=== PATIENT | male | born 1990 | race Caucasian/White ===

== ENCOUNTER 2024-03-03 07:46 | Observation (INO) ==
[2024-03-03] MEDS: Lactated Ringers 1000 ml BAG 1,000 ML IV ONE ×2 (08:14→08:58)
[2024-03-03] MEDS: Morphine 2 MG/ML SYRINGE IV ONE ×3 (08:16→10:04)
[2024-03-03] MEDS: Ondansetron 4 mg VIAL 2 MG/ML 2 ml VIAL IV ONE (08:17)
[2024-03-03 08:23] LABS: ABS Basophils 0.1 10^3/uL (0.0-0.1); ABS Eosinophils 0.1 10^3/uL (0.0-0.5); ABS Lymphocytes 2.3 10^3/uL (1.0-4.8); ABS Monocytes 1.1 10^3/uL (0.0-1.1); ABS Nucleated RBC 0.01 10^3/ul; Eosinophil % 0.6 %; Hematocrit 39.7 % (38-53); Hemoglobin 13.3 g/dL (13.2-16.3); Mean Corpuscular Hemoglobin 30.3 pg (27-33); Mean Corpuscular Hgb Conc 33.5 g/dL (31-36); Mean Corpuscular Volume 90.4 fL (80-97); Mean Platelet Volume 6.9 fL (7.5-11.2); Platelet Count 226 10^3/uL (150-450); Red Blood Count 4.39 10^6/uL (4.06-5.63); Red Cell Distribution Width 13.9 % (12-17); White Blood Count 13.4 10^3/uL (3.6-10.2)
[2024-03-03 09:23] LABS: Albumin 2.5 g/dL (3.2-5.2); Albumin/Globulin Ratio 1.9 (1-3); C Reactive Protein 7.44 mg/L (<8.01); Calcium 5.1 mg/dL (8.6-10.3); Creatinine, Serum 0.69 mg/dL (0.67-1.17); Globulin 1.3 g/dL (2-4); Potassium 2.7 mmol/L (3.5-5.0); Total Bilirubin 0.2 mg/dL (0.2-1.0); Total Protein 3.8 g/dL (6.4-8.9); eGFR CKD-EPI 124.5 (>60)
[2024-03-03 09:32] LABS: Magnesium 1.3 mg/dL (1.9-2.7)
[2024-03-03] MEDS: KCL 20 MEQ/100 ML IVPREMIX 20 MEQ/100 ML BAG IV SCH (09:53)
[2024-03-03] MEDS: Magnesium Sulfate 2 gm BAG 2 GM/50 ML BAG IVPB ONE (10:05)
[2024-03-03] MEDS: Iohexol 300 (CONTRAST) 10 ML SDV IV ONE (10:40)
[2024-03-03 12:27] LABS: Urine Appearance Clear; Urine Bacteria Absent /HPF (Absent); Urine Bilirubin Negative (Negative); Urine Blood 3+ (Negative); Urine Color Yellow; Urine Glucose Negative (Negative); Urine Ketones Negative (Negative); Urine Nitrite Negative (Negative); Urine Protein 1+ (>=30 mg/dL) (Negative); Urine Red Blood Cell 3+(>10/hpf) /HPF (0-Trace); Urine Specific Gravity >1.050 (1.002-1.030); Urine Squamous Epithelial Cell Present /HPF (Absent); Urine Urobilinogen Negative (Negative); Urine White Blood Cell 1+(6-10/hpf) /HPF (0-Trace)
[2024-03-03 15:43] LABS: Albumin 4.1 g/dL (3.2-5.2); Albumin/Globulin Ratio 1.9 (1-3); Calcium 8.6 mg/dL (8.6-10.3); Creatinine, Serum 1.31 mg/dL (0.67-1.17); Globulin 2.2 g/dL (2-4); Magnesium 2.3 mg/dL (1.9-2.7); Potassium 5.2 mmol/L (3.5-5.0); Total Bilirubin 0.5 mg/dL (0.2-1.0); Total Protein 6.3 g/dL (6.4-8.9); eGFR CKD-EPI 73.3 (>60)
[2024-03-03 17:11] LABS: Albumin 4.1 g/dL (3.2-5.2); Calcium 8.4 mg/dL (8.6-10.3); Creatinine, Serum 1.33 mg/dL (0.67-1.17); Globulin 2.1 g/dL (2-4); Potassium 4.5 mmol/L (3.5-5.0); Total Bilirubin 0.6 mg/dL (0.2-1.0); Total Protein 6.2 g/dL (6.4-8.9); eGFR CKD-EPI 71.9 (>60)
[2024-03-03] MEDS: NS 0.9% 1000 ml BAG 1,000 ML IV SCH (18:18)
[2024-03-03] MEDS: cefTRIAXone 1 gm/50 mL D5W 1 GM/50 ML BAG IV ONE (18:19)
[2024-03-03] MEDS: HYDROmorphone 1 MG/1 ML SYRINGE IV SLOW PU ONE (21:06)
[2024-03-03] MEDS ORDERED: Acetaminophen IV 1 GM/100ML 1,000 MG/100 ML BAG IV PRN (21:21)
[2024-03-03] MEDS ORDERED: HYDROmorphone 0.5 MG/0.5 ML SYRINGE IV SLOW PU PRN (21:21)
[2024-03-03 21:32] VITALS: BP 149/79
[2024-03-04] MEDS ORDERED: cefTRIAXone 1 gm/50 mL D5W 1 GM/50 ML BAG IV SCH (18:00)
== END 2024-03-04 07:03 | disposition left against medical advice (07) ==
LOC: ED 07:46 → EDHOLD 07:46 → MEDTELE 20:54
PROVIDERS: ADMIT Internal Medicine; ATTEND Internal Medicine

== ENCOUNTER 2024-04-29 20:27 | Observation (INO) ==
[2024-04-29 21:26] LABS: ABS Basophils 0.1 10^3/uL (0.0-0.1); ABS Lymphocytes 1.8 10^3/uL (1.0-4.8); ABS Monocytes 1.4 10^3/uL (0.0-1.1); ABS Neutrophils 14.3 10^3/uL (1.5-7.6); ABS Nucleated RBC 0.03 10^3/ul; Eosinophil % 0.2 %; Hematocrit 42.3 % (38-53); Hemoglobin 14.3 g/dL (13.2-16.3); Lymphocyte % 10.4 %; Mean Corpuscular Hemoglobin 30.4 pg (27-33); Mean Corpuscular Hgb Conc 33.8 g/dL (31-36); Mean Corpuscular Volume 89.7 fL (80-97); Mean Platelet Volume 7.4 fL (7.5-11.2); Nucleated Red Blood Cells % 0.1 %/100WBC (0.0-0.8); Platelet Count 316 10^3/uL (150-450); Red Blood Count 4.72 10^6/uL (4.06-5.63); Red Cell Distribution Width 14.8 % (12-17); White Blood Count 17.6 10^3/uL (3.6-10.2)
[2024-04-29 22:00] LABS: ALT 24 U/L (7-52); AST 31 U/L (13-39); Albumin 4.6 g/dL (3.2-5.2); Albumin/Globulin Ratio 1.6 (1-3); Alcohol, S < 13 mg/dL (<13); Alkaline Phosphatase 79 U/L (35-149); Anion Gap 10 mmol/L (2-16); Blood Urea Nitrogen 22 mg/dL (6-24); CO2 Carbon Dioxide 28 mmol/L (22-32); Calcium 9.7 mg/dL (8.6-10.3); Chloride 112 mmol/L (101-111); Creatinine, Serum 2.02 mg/dL (0.67-1.17); Globulin 2.9 g/dL (2-4); Glucose 76 mg/dL (70-100); Potassium 4.2 mmol/L (3.5-5.0); Sodium 150 mmol/L (135-145); Total Bilirubin 0.7 mg/dL (0.2-1.0); Total Protein 7.5 g/dL (6.4-8.9); eGFR CKD-EPI 43.6 (>60)
[2024-04-30] MEDS: Lactated Ringers 1000 ml BAG 1,000 ML IV ONE (01:16)
[2024-04-30 02:19] LABS: Creatine Kinase 572 U/L (10-223)
[2024-04-30] MEDS ORDERED: Lorazepam PYXIS KEY PRN (02:35)
[2024-04-30] MEDS: LORazepam 2 MG/ML 1 mL Syringe IV ONE (04:14)
[2024-04-30] MEDS: Lactated Ringers 1000 ml BAG 1,000 ML IV SCH ×2 (04:14→07:52)
[2024-04-30 05:07] VITALS: BP 138/80
[2024-04-30] MEDS ORDERED: LORazepam 2 MG/ML 1 mL Syringe IM PRN (06:22)
[2024-04-30] MEDS: Heparin 5000 UNITS/ML 1 mL VIAL SUBCUT SCH (06:22)
[2024-04-30 07:41] LABS: ABS Basophils 0.1 10^3/uL (0.0-0.1); ABS Eosinophils 0.2 10^3/uL (0.0-0.5); ABS Lymphocytes 3.3 10^3/uL (1.0-4.8); ABS Monocytes 1.3 10^3/uL (0.0-1.1); ABS Neutrophils 8.6 10^3/uL (1.5-7.6); ABS Nucleated RBC 0.01 10^3/ul; Eosinophil % 1.7 %; Hematocrit 37.8 % (38-53); Hemoglobin 12.7 g/dL (13.2-16.3); Lymphocyte % 24.2 %; Mean Corpuscular Hemoglobin 30.4 pg (27-33); Mean Corpuscular Hgb Conc 33.7 g/dL (31-36); Mean Corpuscular Volume 90.3 fL (80-97); Mean Platelet Volume 7.3 fL (7.5-11.2); Nucleated Red Blood Cells % 0.1 %/100WBC (0.0-0.8); Platelet Count 253 10^3/uL (150-450); Red Blood Count 4.19 10^6/uL (4.06-5.63); Red Cell Distribution Width 14.6 % (12-17); White Blood Count 13.4 10^3/uL (3.6-10.2)
[2024-04-30 08:27] LABS: Albumin 3.5 g/dL (3.2-5.2); Albumin/Globulin Ratio 1.5 (1-3); Calcium 8.4 mg/dL (8.6-10.3); Creatinine, Serum 1.32 mg/dL (0.67-1.17); Globulin 2.4 g/dL (2-4); Magnesium 2.2 mg/dL (1.9-2.7); Phosphorus 3.5 mg/dL (2.5-5.0); Potassium 4.3 mmol/L (3.5-5.0); Total Bilirubin 0.8 mg/dL (0.2-1.0); Total Protein 5.9 g/dL (6.4-8.9); eGFR CKD-EPI 72.6 (>60)
== END 2024-04-30 09:02 | disposition home or self-care (01) ==
LOC: EDHOLD 20:27 → ED 20:27 → SUATTDRO 04-30 01:51 → EDHOLD 04-30 09:01
PROVIDERS: ADMIT Internal Medicine; ATTEND Student in an Organized Health Care Education/Training Program

== ENCOUNTER 2024-05-04 10:39 | Observation (INO) ==
[2024-05-04] MEDS: Morphine 4 MG/ML VIAL (1 ml) IV ONE (12:18)
[2024-05-04] MEDS: Lactated Ringers 1000 ml BAG 1,000 ML IV ONE (12:18)
[2024-05-04] MEDS: Piperacillin/Tazobac 3.375 BAG 3.375 GM/100 ML BAG IV ONE (12:18)
[2024-05-04 12:31] LABS: ABS Basophils 0.1 10^3/uL (0.0-0.1); ABS Eosinophils 0.3 10^3/uL (0.0-0.5); ABS Lymphocytes 2.4 10^3/uL (1.0-4.8); ABS Monocytes 0.9 10^3/uL (0.0-1.1); ABS Neutrophils 6.5 10^3/uL (1.5-7.6); ABS Nucleated RBC 0.01 10^3/ul; Eosinophil % 2.6 %; Hematocrit 38.1 % (38-53); Hemoglobin 12.9 g/dL (13.2-16.3); Lymphocyte % 23.8 %; Mean Corpuscular Hemoglobin 30.4 pg (27-33); Mean Corpuscular Hgb Conc 33.8 g/dL (31-36); Mean Corpuscular Volume 89.9 fL (80-97); Mean Platelet Volume 7.5 fL (7.5-11.2); Nucleated Red Blood Cells % 0.1 %/100WBC (0.0-0.8); Platelet Count 266 10^3/uL (150-450); Red Blood Count 4.24 10^6/uL (4.06-5.63); Red Cell Distribution Width 14.4 % (12-17)
[2024-05-04] MEDS: Vancomycin 1,500 MG in NS 0.9% 250 ml 250 ML IVPB ONE (12:51)
[2024-05-04 13:39] LABS: Albumin 3.4 g/dL (3.2-5.2); Albumin/Globulin Ratio 1.4 (1-3); Calcium 8.2 mg/dL (8.6-10.3); Creatinine, Serum 0.9 mg/dL (0.67-1.17); Globulin 2.4 g/dL (2-4); Potassium 3.9 mmol/L (3.5-5.0); Total Bilirubin 0.2 mg/dL (0.2-1.0); Total Protein 5.8 g/dL (6.4-8.9); eGFR CKD-EPI 114.9 (>60)
[2024-05-04] MEDS: Nicotine GUM 4MG FRUIT FLAVOR PO PRN (14:39)
[2024-05-04 16:28] LABS: C Reactive Protein 11.29 mg/L (<8.01)
[2024-05-04] MEDS: Enoxaparin 40 MG/0.4 ML SYR SUBCUT SCH (18:19)
[2024-05-04] MEDS: Calcium Carb (TUMS) 500 mg CHEW TAB PO SCH (20:12)
[2024-05-04] MEDS: Piperacillin/Tazobac 3.375 BAG 3.375 GM/100 ML BAG IV SCH ×2 (22:07→22:15)
[2024-05-05] MEDS: HYDROmorphone 1 MG/1 ML SYRINGE IV SLOW PU PRN (00:04)
[2024-05-05] MEDS: Lactated Ringers 1000 ml BAG 1,000 ML IV SCH (18:24)
[2024-05-06] MEDS ORDERED: Ondansetron 4 mg VIAL 2 MG/ML 2 ml VIAL IV PRN (08:27)
[2024-05-06] MEDS ORDERED: fentaNYL 100 mcg/2 ml 50 MCG/ML VIAL IV PRN (08:27)
[2024-05-06] MEDS ORDERED: Naloxone 0.4 mg VIAL 0.4 mg/ml 1 ml VIAL IV PRN (08:27)
[2024-05-06] MEDS: Ampicillin ADVAN 2 GM in NS 0.9% 100 ML IVPB ONE (10:59)
[2024-05-06] MEDS: Scopolamine 1 mg/72hr PATCH TRANSDERM ONE (11:56)
[2024-05-06] MEDS: Buffered Lidocaine 1% SYRIN 1 ml INTRADERM ONE (11:56)
[2024-05-06 14:21] VITALS: BP 137/81
== END 2024-05-06 16:40 | disposition home or self-care (01) ==
LOC: ED 10:39 → EDHOLD 10:39 → SUATTDRO 15:44 → MED 19:29
PROVIDERS: ADMIT Hospitalist; ATTEND Internal Medicine Hematology & Oncology

== ENCOUNTER 2024-06-10 18:40 | Inpatient (IN) ==
[2024-06-10 20:36] LABS: ABS Basophils 0.1 10^3/uL (0.0-0.1); ABS Eosinophils 0.2 10^3/uL (0.0-0.5); ABS Monocytes 0.7 10^3/uL (0.0-1.1); ABS Neutrophils 8.5 10^3/uL (1.5-7.6); ABS Nucleated RBC 0.01 10^3/ul; Eosinophil % 1.5 %; Hematocrit 40.6 % (38-53); Hemoglobin 13.8 g/dL (13.2-16.3); Lymphocyte % 24.2 %; Mean Corpuscular Hemoglobin 30.4 pg (27-33); Mean Corpuscular Hgb Conc 33.9 g/dL (31-36); Mean Corpuscular Volume 89.8 fL (80-97); Mean Platelet Volume 7.1 fL (7.5-11.2); Nucleated Red Blood Cells % 0.1 %/100WBC (0.0-0.8); Platelet Count 299 10^3/uL (150-450); Red Blood Count 4.53 10^6/uL (4.06-5.63); Red Cell Distribution Width 14.4 % (12-17); White Blood Count 12.5 10^3/uL (3.6-10.2)
[2024-06-10 21:01] LABS: High Sens Troponin Baseline 3 pg/mL (<20)
[2024-06-10 21:13] LABS: ALT 17 U/L (7-52); AST 18 U/L (13-39); Albumin/Globulin Ratio 1.6 (1-3); Alkaline Phosphatase 64 U/L (35-149); Anion Gap 7 mmol/L (2-16); Blood Urea Nitrogen 12 mg/dL (6-24); CO2 Carbon Dioxide 29 mmol/L (22-32); Chloride 106 mmol/L (101-111); Creatinine, Serum 0.96 mg/dL (0.67-1.17); Globulin 2.5 g/dL (2-4); Glucose 92 mg/dL (70-100); Sodium 142 mmol/L (135-145); Total Bilirubin 0.4 mg/dL (0.2-1.0); Total Protein 6.5 g/dL (6.4-8.9); eGFR CKD-EPI 106.4 (>60)
[2024-06-10 22:58] LABS: Acetaminophen < 15 mcg/mL; Alcohol, S < 13 mg/dL (<13); Salicylate < 2.50 mg/dL (<30)
[2024-06-11] MEDS ORDERED: Al Hydrox/Mg Hydrox/Simet LIQ 30 ML UDC PO PRN (04:46)
[2024-06-11 05:52] LABS: Urine Benzodiazepine Screen None Detected (None Detect); Urine Cannabinoids Screen None Detected (None Detect); Urine Opiates Screen None Detected (None Detect)
[2024-06-11 06:15] VITALS: BP 153/63
[2024-06-11] MEDS: Vitamin THERAPEUTIC TAB PO SCH (08:06)
[2024-06-11] MEDS: Nicotine GUM 2MG FRUIT FLAVOR PO PRN (08:09)
[2024-06-11] MEDS: Nicotine PATCH 14 MG/24 HR PATCH TRANSDERM SCH (08:10)
[2024-06-13] MEDS ORDERED: Nicotine Lozenge mini 4 MG LOZNG.MINI MT PRN (11:27)
== END 2024-06-13 16:35 | DRG 776 ==
LOC: ED 18:40 → BSU 06-11 04:27 → ED 06-11 06:13 → BSU 06-13 14:23
PROVIDERS: ADMIT Psychiatry & Neurology Addiction Psychiatry; ATTEND Psychiatry & Neurology Psychiatry